=== PATIENT | female | born 1950 ===

== ENCOUNTER 2019-04-29 05:17 | Day surgery (SDC) | payer OTHER ==
[~2019-04-29 05:17] MED LIST: MULTI VITAMIN1 EACH PO; SYNTHROID100 MCG PO; VITAMIN D35000 UNIT PO
[2019-04-29] MEDS ORDERED: ULTRACET PO (10:14)
[2019-04-29] MEDS ORDERED: MACROBID 100 M100 MG PO (10:14)
== END 2019-04-29 13:00 | disposition home or self-care (01) ==
LOC: CIR.AMB 05:17
DX: N81.11 Cystocele, midline (principal)